=== PATIENT | female | born 1955 | race Two or more races ===

== ENCOUNTER 2023-10-31 09:57 | Emergency (ER) | payer MEDICAID ==
[~2023-10-31] VITALS: Ht 165.1 cm; Wt 91.0 kg
[2023-10-31 10:00] VITALS: TEMP 98.5; O2SAT 99
[2023-10-31 11:29] VITALS: BP 114/78; PULSE 71; RESP 18
[2023-10-31] MEDS: TETRACAINE 0.5% OPHTH DROPS 4ML LEFTEYE ONE (11:48)
[2023-10-31] MEDS: FLUORESCEIN SODIUM 1MG/STRIP LEFTEYE ONE (11:48)
[2023-10-31] MEDS ORDERED: LIDO700A15 TP (12:42)
[2023-10-31] MEDS ORDERED: ASPI1TAB8 PO (12:42)
== END 2023-10-31 13:39 | disposition home or self-care (01) ==
LOC: ER 09:57
DX: H57.12 Ocular pain, left eye (principal); R51.9 Headache, unspecified; I10 Essential (primary) hypertension
CPT/HCPCS: 99284

== ENCOUNTER 2024-04-14 20:08 | Emergency (ER) | payer MEDICAID, OTHER ==
[~2024-04-14] VITALS: Ht 160 cm; Wt 87.0 kg
[~2024-04-14 20:08] MED LIST: ASPI1TAB8 PO; LIDO700A15 TP
[2024-04-14 20:22] VITALS: BP 133/72; PULSE 66; RESP 16; TEMP 98.2; O2SAT 98
[2024-04-14] MEDS ORDERED: ACETAMINOPHEN 325MG TABLET PO ONE (23:45)
[2024-04-15] MEDS ORDERED: ACETAMINOPHEN 325MG TABLET PO NR (01:00)
[2024-04-15] MEDS ORDERED: KETOROLAC 15MG/ML VIAL IM ONE (01:30)
== END 2024-04-15 02:47 | disposition home or self-care (01) ==
LOC: ER 20:08
DX: M25.561 Pain in right knee (principal); M25.571 Pain in right ankle and joints of right foot; E11.9 Type 2 diabetes mellitus without complications; E78.00 Pure hypercholesterolemia, unspecified; I10 Essential (primary) hypertension
CPT/HCPCS: 73562; 99284; 73610; J1885; Z7610